=== PATIENT | male | born 1995 | race African-American/Black ===

== ENCOUNTER 2022-03-05 13:39 | Emergency (ER) | payer SELFPAY ==
[~2022-03-05] VITALS: Ht 185.4 cm; Wt 86.0 kg
[2022-03-05 17:35] LABS: CLARITY URINE CLEAR (CLEAR); COLOR URINE YELLOW (YELLOW); KETONES URINE NEGATIVE (NEGATIVE); LEUKOCYTE ESTERASE URINE NEGATIVE (NEGATIVE); NITRITE URINE NEGATIVE (NEGATIVE); OCCULT BLOOD URINE NEGATIVE (NEGATIVE); PROTEIN URINE NEGATIVE (NEGATIVE); SPECIFIC GRAVITY URINE 1.014 (1.005-1.030); UROBILINOGEN URINE 0.2 E.U./dL (0.2-1.0)
[2022-03-05 17:46] LABS: *AMPHETAMINES SCREEN URINE NEGATIVE (NEGATIVE); *BARBITURATES SCREEN URINE NEGATIVE (NEGATIVE); *BENZODIAZEPINES SCREEN URINE NEGATIVE (NEGATIVE); *COCAINE SCREEN URINE NEGATIVE (NEGATIVE); CANNABINOID URINE SCREEN PRESUMTIVE POSITIVE (NEGATIVE); METHADONE URINE SCREEN NEGATIVE (NEGATIVE); OPIATES URINE SCREEN NEGATIVE (NEGATIVE); PHENCYCLIDINE URINE SCREEN NEGATIVE (NEGATIVE)
[2022-03-05 19:19] VITALS: BP 116/83
== END 2022-03-05 20:38 | disposition home or self-care (01) ==
LOC: ER 13:45
DX: F12.10 Cannabis abuse, uncomplicated (principal); R55 Syncope and collapse; F10.10 Alcohol abuse, uncomplicated
CPT/HCPCS: 80305; 81003; 93005; 99284